=== PATIENT | female | born 1975 | race Caucasian/White ===

== ENCOUNTER → 2017-02-24 | Outpatient (CLI) | payer BC ==
--- NOTE | 2017-02-24 12:46 | RADIOLOGY REPORT PS360 ---
EXAM: LUMBAR SPINE 5 VIEWS HISTORY: RT SIDED LOW BACK PAIN,RT HIP PAIN ORDERING PHYSICIAN: Sole CONWAY PATIENT AGE: 41 years COMPARISON: None FINDINGS: Normal alignment. No fracture or dislocation. No lytic or blastic change. Severe degenerative disc disease is present at L5-S1 with endplate osteophytes and decrease in the disc space and osteophyte sclerosis of the endplates. There are mild facet arthritic changes at L5-S1 as well. IMPRESSION: Severe degenerative disc disease with facet arthritic change at L5-S1
--- NOTE | 2017-02-24 12:47 | RADIOLOGY REPORT PS360 ---
HIP RT 2-3V W/PELVIS IF PERFOR HISTORY: Right-sided hip pain RT SIDED LOW BACK PAIN,RT HIP PAIN ORDERING PHYSICIAN: Sole CONWAY PATIENT AGE: 41 years COMPARISON: None FINDINGS: No fracture or dislocation is evident. No significant degenerative change. No lytic or blastic change. Unremarkable soft tissues IMPRESSION: Negative hip
== END ==
LOC: RAD 10:35
DX: M54.41 Lumbago with sciatica, right side (principal); M25.551 Pain in right hip